=== PATIENT | female | born 1955 | race African-American/Black ===

== ENCOUNTER 2016-10-24 13:51 | Emergency (ER) | payer SELFPAY ==
[~2016-10-24] VITALS: Ht 149.9 cm; Wt 48.4 kg
[2016-10-24] MEDS ORDERED: ROBITUSSIN AC,T10 ML PO (15:57)
[2016-10-24] MEDS ORDERED: VENTOLIN HFA18 GM IH (16:56)
[2016-10-24] MEDS ORDERED: MOTRIN600 MG PO (16:56)
[2016-10-24 17:06] VITALS: BP 134/93
== END 2016-10-24 17:08 | disposition home or self-care (01) ==
LOC: EXP 13:51 → EME 13:51 → EXP 17:08
DX: J40 Bronchitis, not specified as acute or chronic (principal); D17.1 Benign lipomatous neoplasm of skin and subcutaneous tissue of trunk; M25.562 Pain in left knee; F17.200 Nicotine dependence, unspecified, uncomplicated
CPT/HCPCS: 71020; 73564; 74176; 99281; 99285